=== PATIENT | female | born 1940 | race Caucasian/White ===

== ENCOUNTER → 2017-01-01 | Outpatient (CLI) | payer MEDICARE, BC ==
[~2017-01-01] MED LIST: ADIPEX-P37.5 M1 PO; ADVAIR 100-501 EAC1 IH; ALBUTEROL17 GM INH; ANEXSIA 5/325 M1 TA1 PO; ARTHROTEC 501 TAB.EC PO; ARTHROTEC EC 71 EAC1 PO; ASPIRIN EC81 M1 PO; ASPIRIN PO; ASPIRIN81 MG PO; AVANDAMET PO; BREO ELLIPTA 11 EACH INH; CIPRO PO; DIOVAN PO; DITROPAN PO; GINKO BILOBA PO; HARD NAILS2500 MCG PO; IBUPROFEN PO; INOSITOL IM; JANUMET 50-1,1 UDTAB PO; LEVOCETIRIZINE D5 MG PO; LEXAPRO PO; LEXAPRO20 MG PO; LO-DOSE ASPIRIN81 M1 PO; LOPRESSOR PO; NOVOLOG MI100 UNIT/1 SUBQ; NOVOLOG7030 SUBQ; OXYTROL1 PATCH.BW PO; PREVACID PO; PROAIR HFA8.5 GM IH; PROAIR HFA8.5 GM INH; REQUIP0.5 MG PO; ROPINIROLE HCL0.5 MG PO; SINGULAIR PO; STARLIX PO; SYMBICORT 16010.2 GM INH; SYMBICORT INH; TOPROL XL PO; TRAMADOL HCL50 M1 PO; TRICOR PO; TRICOR145 MG PO; VESICARE PO; VITAMIN C1000 M2 PO; ZETIA PO; [UNRECOGNIZED DRUG - OTHER] IM; [UNRECOGNIZED DRUG - OTHER] PO
--- NOTE | ~2017-01-01 | CR63 ---
[facility] A Service of [facility] RADIOLOGY TEXT RESULTS PATIENT: JORGE LU [id number] : 44 UNIT #: [id number] AGE: [address]: Bertha Feliciano MD SEX: F ORDER DR: [id number] [facility] [address] [place], [place] [address] [id number] O MR#: [id number] Acc #: [id number] NAME: JORGE LU. : 1940 SEX: F STUDY DATE/TIME: 01/01/2017 18:04 UNIT: [facility] ROOM: STUDY DESCRIPTION: CR Chest 2 View Attending Physician: Bertha Feliciano M.D. Referring Physician: Bertha Feliciano M.D. Ordering Physician: Bertha Feliciano M.D. Primary Care Physician: Chidi Hurt M.D. MEDICAL IMAGING REPORT This report is preliminary unless electronic signature is present EXAM 2 views chest. DATE OF EXAM 01/01/2017 HISTORY Bronchitis, 01/01/2015, acute bronchitis, cough, short of air, acute bronchitis of 2 months duration. REPORT PA and lateral radiographs of the chest are presented. COMPARISON 02/09/2016 FINDINGS Degenerative changes in the spine. No acute-appearing bony abnormality. The heart and mediastinum are within normal limits of size and contour. Lung volumes improved compared to prior examination with no evidence of acute infectious or inflammatory disease, pleural effusion or pneumothorax. No suspicious nodule. Dictated by... Alden Doe M.D. THIS IS AN ELECTRONICALLY VERIFIED REPORT Alden Doe M.D. at 01/03/2017 1:54 PM SAIDA/stephanie [facility] A Service [facility] RADIOLOGY TEXT RESULTS PATIENT: JORGE LU [facility] [id number] : 44 UNIT #: [id number] AGE: [address]: Bertha Feliciano MD SEX: F ORDER DR: TD: 01/02/2017 21:49 JOB #: [id number] MEDICAL IMAGING REPORT Page 1 of 1 COPY
== END | disposition home or self-care (01) ==
LOC: CRAD 17:51
DX: J20.9 Acute bronchitis, unspecified (principal)
CPT/HCPCS: 71020

== ENCOUNTER 2017-01-26 11:40 | Emergency (ER) | payer MEDICARE, BC ==
--- NOTE | ~2017-01-26 | CR94 ---
[facility] A Service of [facility] RADIOLOGY TEXT RESULTS PATIENT: JORGE LU LOCATION: SED : 44 UNIT #: [id number] AGE: [address]: Kiarra Abdul APRN SEX: F ORDER DR: [id number] [place] [id number] E MR#: [id number] Acc #: [id number] NAME: JORGE LU : 1940 SEX: F STUDY DATE/TIME: 01/26/2017 11:43 UNIT: SED ROOM: STUDY DESCRIPTION: CR Elbow Min 3 Views Rt Attending Physician: Kiarra Abdul A.P.R.N. Ordering Physician: Kiarra Abdul A.P.R.N. Primary Care Physician: Chidi Hurt M.D. MEDICAL IMAGING REPORT This report is preliminary unless electronic signature is present. EXAM Right elbow, 01/26/2017 11:43 HISTORY 76-year-old woman who fell yesterday with trauma to the elbow and forearm. Pain since yesterday. COMPARISON None FINDINGS AP, lateral and oblique views demonstrate a definite elbow joint effusion which implies the presence of a fracture in the setting of trauma. No definite fracture is seen. Statistically fracture of the radial head is most likely in an adult. The ulna is intact and no humeral fracture is seen. IMPRESSION An elbow joint effusion is present implying the presence of a fracture at the elbow joint. No definite fracture is seen. Statistically this is most likely present in the radial head although I cannot clearly identify a fracture at the radial head. STAT * RESULT Dictated by... Khloe Graham M.D. THIS IS AN ELECTRONICALLY VERIFIED REPORT Khloe Graham M.D. at 01/26/2017 2:27 PM [facility] A Service of [facility] RADIOLOGY TEXT RESULTS PATIENT: JORGE LU [id number] [birth year] UNIT #: [id number] AGE: [address]: Kiarra Abdul APRN SEX: F ORDER DR: Sangeeta TD: 01/26/2017 12:06 JOB #: [id number] MEDICAL IMAGING REPORT Page 1 of 1
--- NOTE | ~2017-01-26 | CR133 ---
[facility] A Service of [facility] RADIOLOGY TEXT RESULTS PATIENT: JORGE LU LOCATION: SED : 44 UNIT #: [id number] AGE: [address]: Kiarra Abdul APRN SEX: F ORDER DR: [id number] [place] [id number] E MR#: [id number] Acc #: [id number] NAME: JORGE LU : 1940 SEX: F STUDY DATE/TIME: 01/26/2017 11:43 UNIT: SED ROOM: STUDY DESCRIPTION: CR Forearm 2 View Rt Attending Physician: Kiarra Abdul A.P.R.N. Ordering Physician: Kiarra Abdul A.P.R.N. Primary Care Physician: Chidi Hurt M.D. MEDICAL IMAGING REPORT This report is preliminary unless electronic signature is present. EXAM Right forearm 01/26/2017 1143 hours HISTORY 76-year-old woman who fell hitting arm yesterday. Patient complains of elbow and forearm pain. COMPARISON Right wrist film 07/10/2015. FINDINGS AP and lateral views of the radius and ulna demonstrate no fracture. Degenerative changes are present at the wrist. IMPRESSION No fracture of the radius or ulna. Degenerative changes are noted at the wrist, similar to 07/10/2015. Dictated by... Khloe Graham M.D. THIS IS AN ELECTRONICALLY VERIFIED REPORT Khloe Graham M.D. at 01/26/2017 2:28 PM PRISCILLA/feliz TD: 01/26/2017 12:39 JOB #: [id number] MEDICAL IMAGING REPORT Page 1 of 1
== END 2017-01-26 13:50 | disposition home or self-care (01) ==
LOC: SED 11:40
DX: S52.121A Displaced fracture of head of right radius, initial encounter for closed fracture (principal); M19.90 Unspecified osteoarthritis, unspecified site; G47.30 Sleep apnea, unspecified; Z88.5 Allergy status to narcotic agent; Z88.8 Allergy status to other drugs, medicaments and biological substances; Z79.899 Other long term (current) drug therapy; Z79.4 Long term (current) use of insulin; W18.09XA Striking against other object with subsequent fall, initial encounter; Y92.9 Unspecified place or not applicable
CPT/HCPCS: 29125; 29260; 73080; 73090; 99284

== ENCOUNTER → 2017-06-03 | Outpatient (CLI) | payer MEDICARE, BC ==
--- NOTE | ~2017-06-03 | MY29 ---
[facility] A Service of [facility] RADIOLOGY TEXT RESULTS PATIENT: JORGE LU LOCATION: [facility] : 42 UNIT #: [id number] AGE: [address]: Chidi Hurt MD SEX: F ORDER DR: [id number] [facility] [address] [place], [place] [address] [id number] O MR#: [id number] Acc #: [id number] NAME: JORGE LU : 1940 SEX: F STUDY DATE/TIME: 06/03/2017 14:35 UNIT: [facility] ROOM: STUDY DESCRIPTION: MY CAREY SCREENING W/ CAD BILAT Attending Physician: Chidi Hurt M.D. Referring Physician: Chidi Hurt M.D. Ordering Physician: Chidi Hurt M.D. Primary Care Physician: Chidi Hurt M.D. MEDICAL IMAGING REPORT This report is preliminary unless electronic signature is present EXAM Bilateral digital screening mammogram with CAD 06/03/2017 INDICATIONS 76-year-old female for routine screening. No reported problems and no personal or family history of breast cancer. Biopsy last year on the left with benign results. TECHNIQUE CC and MLO views of the breasts were obtained and reviewed with an FDA-approved CAD device. COMPARISON 12/24/2015, 11/07/2015, 08/13/2015, 07/04/2014. FINDINGS Breast parenchyma is heterogeneously dense with a fibronodular pattern. This is unchanged, but degrades sensitivity of screening mammography. There is a new biopsy clip in the upper outer left breast. There is no new dominant nodule or mass in either breast. No new suspicious cluster of microcalcifications. Benign calcifications are present. Faint nodularity in both breasts unchanged. IMPRESSION Benign screening mammogram; 1-year followup recommended. Patients over the age of 40 are entered into a reminder system with target due date for the next mammogram. A result letter will also be sent to the patient. BIRADS: 2 Benign finding. [facility] A Service of [facility] RADIOLOGY TEXT RESULTS PATIENT: JORGE LU LOCATION: [facility] : 42 UNIT #: [id number] AGE: [address]: Chidi Hurt MD SEX: F ORDER DR: Dictated by... Jassi Hdz M.D. THIS IS AN ELECTRONICALLY VERIFIED REPORT Jassi Hdz M.D. at 06/04/2017 5:23 PM Kellie TD: 06/04/2017 13:54 JOB #: [id number] MEDICAL IMAGING REPORT Page 1 of 1 COPY
--- NOTE | ~2017-06-03 | BD1 ---
[facility] A Service of [facility] & [facility] RADIOLOGY TEXT RESULTS PATIENT: JORGE LU LOCATION: [facility] : 42 UNIT #: [id number] AGE: [address]: Chidi Hurt MD SEX: F ORDER DR: [id number] [facility] [address] [place], [place] [address] [id number] O MR#: [id number] Acc #: [id number] NAME: JORGE LU : 1940 SEX: F STUDY DATE/TIME: 06/03/2017 14:07 UNIT: [facility] ROOM: STUDY DESCRIPTION: BD Dexa Bone Dens 1+ Site Attending Physician: Chidi Hurt M.D. Referring Physician: Chidi Hurt M.D. Ordering Physician: Chidi Hurt M.D. Primary Care Physician: Chidi Hurt M.D. MEDICAL IMAGING REPORT This report is preliminary unless electronic signature is present EXAM DXA scan 06/03/2017 HISTORY Status post menopause with no hormone replacement therapy. Osteopenia. Hysterectomy with removal of 1 ovary. Kidney disease and arthritis. Diabetes. Hypertension with blood pressure medication for 25 years. Fracture of the left foot, right hand and right elbow in last 10 years. Smoking history. FINDINGS Bone mineral density in the distal left forearm was 0.498 g/cm2 which is 1.5 standard deviations below the mean when compared to the young adult reference population which is characteristic of osteopenia. This is 0.9 standard deviations above the mean when compared to the age-matched population. Compared with 05/24/2013, there has been a decrease in bone mineral density in the left forearm of 7.2%. Bone mineral density in the left femoral neck was 0.709 g/cm2 which is 1.3 standard deviations below the mean when compared to the young adult reference population which is characteristic of osteopenia. This is 0.8 standard deviations above the mean when compared to the age-matched population. Compared with 05/24/2013, there has been a decrease in bone mineral density in the left hip of 4.1%. IMPRESSION Bone mineral density in the left forearm and left femoral neck characteristic of osteopenia. Compared with 05/24/2013, there has been a decrease in bone mineral density in the left forearm and the left hip. Dictated by... Jarrell Wade M.D. [facility] A Service of [facility] RADIOLOGY TEXT RESULTS PATIENT: JORGE LU LOCATION: [facility] #: [id number] : 44 UNIT #: [id number] AGE: [address]: Chidi Hurt MD SEX: F ORDER DR: THIS IS AN ELECTRONICALLY VERIFIED REPORT Jarrell Wade M.D. at 06/04/2017 7:49 AM STEPHNE/socorro TD: 06/03/2017 16:12 JOB #: [id number] MEDICAL IMAGING REPORT Page 1 of 1 COPY
== END | disposition home or self-care (01) ==
LOC: CWCC 13:30
DX: Z12.31 Encounter for screening mammogram for malignant neoplasm of breast (principal); M85.80 Other specified disorders of bone density and structure, unspecified site; Z78.0 Asymptomatic menopausal state; Z98.890 Other specified postprocedural states
CPT/HCPCS: 77080; G0202